=== PATIENT | female | born 1970 | race Caucasian/White ===

== ENCOUNTER 2021-09-07 10:56 | Outpatient (CLI) | payer BC | END 2021-09-07 10:57 | disposition home or self-care (01) | LOC: CSHMAMMO 10:56 | PROVIDERS: ATTEND Student in an Organized Health Care Education/Training Program | DX: Z12.31 Encounter for screening mammogram for malignant neoplasm of breast (principal); Z80.3 Family history of malignant neoplasm of breast; Z91.89 Other specified personal risk factors, not elsewhere classified | CPT/HCPCS: 77063; 77067 ==

== ENCOUNTER 2022-10-20 10:53 | Outpatient (CLI) | payer BC | END 2022-10-20 10:54 | disposition home or self-care (01) | LOC: CSHMAMMO 10:53 | PROVIDERS: ATTEND Student in an Organized Health Care Education/Training Program | DX: Z12.31 Encounter for screening mammogram for malignant neoplasm of breast (principal); N63.10 Unspecified lump in the right breast, unspecified quadrant; N63.20 Unspecified lump in the left breast, unspecified quadrant; Z91.89 Other specified personal risk factors, not elsewhere classified; Z80.3 Family history of malignant neoplasm of breast | CPT/HCPCS: 77063; 77067 ==

== ENCOUNTER 2024-01-19 11:51 | Emergency (ER) | payer BC | END 2024-01-19 13:30 | disposition home or self-care (01) | LOC: CSHERS 11:51 | DX: Z46.6 Encounter for fitting and adjustment of urinary device (principal) | CPT/HCPCS: 99283 ==

== ENCOUNTER 2024-02-14 23:39 | Emergency (ER) | payer BC ==
[2024-02-15] MEDS ORDERED: Ondansetron PF 4 MG/2 ML Vial ONE ×2 (00:01→01:49)
[2024-02-15 00:22] LABS: ALT (SGPT) 7 U/L (8-55); AST (SGOT) 15 U/L (5-34); Alkaline Phosphatase 106 U/L (40-110); Anion Gap 16 mmol/L (10-20); BUN (Urea Nitrogen) 5 mg/dL (9.8-20.1); Bilirubin, Total 0.4 mg/dL (0.2-1.2); Calc. Creatinine Clearance 0 mL/min (70-130); Calcium 9.6 mg/dL (7.8-10.44); Carbon Dioxide 21 mmol/L (22-29); Chloride 103 mmol/L (98-107); Estimated GFR 100; Globulin 3.3 g/dL (2.4-3.5); Glucose 129 mg/dL (70-105); Lipase 9 U/L (8-78); Potassium 3.1 mmol/L (3.5-5.1); Protein, Total 6.3 g/dL (6.0-8.3); Sodium 137 mmol/L (136-145)
[2024-02-15 00:35] LABS: #Basophils 0.02 10x3/uL (0.0-0.2); #Monocytes 0.69 10x3/uL (0.0-1.1); #Neutrophils 8.41 10x3/uL (1.5-8.4); %Basophils 0.2 % (0.0-2.0); %Eosinophils 2.7 % (0.0-6.0); %Lymphocytes 13.8 % (18.0-47.0); %Monocytes 6.3 % (0.0-10.0); %Neutrophils 76.6 % (40.0-75.0); Hematocrit 34.8 % (34.9-44.5); Hemoglobin 11.8 g/dL (12.0-15.5); Mean Corpuscular HGB CONC 33.9 g/dL (32.0-36.0); Mean Corpuscular Hemoglobin 28.7 pg (27.0-33.0); Mean Corpuscular Volume 84.7 fL (81.6-98.3); Mean Platelet Volume 9.9 fL (7.4-10.4); Platelet Count 438 10x3/uL (150-450); RBC Distribution Width 12.4 % (11.5-14.5); Red Blood Cell (RBC) Count 4.11 10x6/uL (3.90-5.03)
[2024-02-15] MEDS ORDERED: Ketorolac Tromethamine 30 MG (1 mL) VIAL ONE (00:36)
[2024-02-15] MEDS ORDERED: Morphine 4 MG/ML VIAL ONE ×3 (00:36→04:51)
[2024-02-15] MEDS ORDERED: Famotidine/PF 20 mg/2ml Vial ONE (00:38)
[2024-02-15 01:13] LABS: BHCG - Serum Negative (NEGATIVE); Pregs Control Background? CLEAR/WHITE (CLR/WHITE); Pregs Control Bar Appear? YES (CONTROL BAR)
[2024-02-15] MEDS ORDERED: Potassium Chloride 20 MEQ TAB ONE (04:00)
[2024-02-15] MEDS ORDERED: Polyethylene Glycol 3350 17 GM Packet PO SCH (05:00)
[2024-02-15] MEDS ORDERED: Iopamidol 300 61% 100 ML VIAL FS ONE (13:29)
== END 2024-02-15 05:18 | disposition home or self-care (01) ==
LOC: CSHERS 23:39
DX: C21.8 Malignant neoplasm of overlapping sites of rectum, anus and anal canal (principal); K59.00 Constipation, unspecified; E87.6 Hypokalemia; R03.0 Elevated blood-pressure reading, without diagnosis of hypertension
CPT/HCPCS: 74177; 80053; 83690; 84703; 85025; 93005; 96361; 96374; 96375; 96376; J1885; J2270; J2405; Q9967; S0028

== ENCOUNTER 2024-02-17 16:50 | Emergency (ER) | payer BC ==
[~2024-02-17 16:50] MED LIST: Iopamidol 300 61% 100 ML VIAL FS ONE
[2024-02-17] MEDS ORDERED: Metoclopramide HCl 10 MG (2 mL) VIAL ONE (17:36)
[2024-02-17] MEDS ORDERED: diphenhydrAMINE 50 MG/ML VIAL ONE (17:36)
[2024-02-17] MEDS ORDERED: HYDROmorphone 0.5 MG/0.5 ML SYRINGE ONE (17:36)
[2024-02-17 17:57] LABS: #Basophils 0.01 10x3/uL (0.0-0.2); #Eosinphils 0.41 10x3/uL (0.0-0.5); #Monocytes 0.54 10x3/uL (0.0-1.1); #Neutrophils 9.18 10x3/uL (1.5-8.4); %Basophils 0.1 % (0.0-2.0); %Eosinophils 3.7 % (0.0-6.0); %Lymphocytes 9.4 % (18.0-47.0); %Monocytes 4.8 % (0.0-10.0); %Neutrophils 81.7 % (40.0-75.0); Hematocrit 35.5 % (34.9-44.5); Mean Corpuscular HGB CONC 33.8 g/dL (32.0-36.0); Mean Corpuscular Hemoglobin 29.1 pg (27.0-33.0); Mean Corpuscular Volume 86.2 fL (81.6-98.3); Platelet Count 413 10x3/uL (150-450); RBC Distribution Width 12.4 % (11.5-14.5); Red Blood Cell (RBC) Count 4.12 10x6/uL (3.90-5.03); White Blood Cell (WBC) Count 11.2 10x3/uL (3.5-10.5)
[2024-02-17 18:06] LABS: ALT (SGPT) 8 U/L (8-55); AST (SGOT) 16 U/L (5-34); Albumin 2.9 g/dL (3.5-5.0); Alkaline Phosphatase 108 U/L (40-110); Anion Gap 17 mmol/L (10-20); BUN (Urea Nitrogen) 5 mg/dL (9.8-20.1); Bilirubin, Total 0.4 mg/dL (0.2-1.2); Calc. Creatinine Clearance 0 mL/min (70-130); Calcium 9.3 mg/dL (7.8-10.44); Carbon Dioxide 23 mmol/L (22-29); Chloride 98 mmol/L (98-107); Estimated GFR 104; Globulin 3.4 g/dL (2.4-3.5); Glucose 93 mg/dL (70-105); Potassium 3.4 mmol/L (3.5-5.1); Protein, Total 6.3 g/dL (6.0-8.3); Sodium 135 mmol/L (136-145)
== END 2024-02-17 19:54 | disposition home or self-care (01) ==
LOC: CSHERS 16:50
DX: R11.2 Nausea with vomiting, unspecified (principal); C18.8 Malignant neoplasm of overlapping sites of colon
CPT/HCPCS: 74177; 80053; 85025; 96361; 96374; 96375; J1170; J1200; J2765; Q9967

== ENCOUNTER 2024-05-03 16:24 | Emergency (ER) | payer BC ==
[2024-05-03 17:39] LABS: Hematocrit 26.7 % (34.9-44.5); Hemoglobin 9.1 g/dL (12.0-15.5); Mean Corpuscular HGB CONC 34.1 g/dL (32.0-36.0); Mean Corpuscular Hemoglobin 28.8 pg (27.0-33.0); Mean Corpuscular Volume 84.5 fL (81.6-98.3); Mean Platelet Volume 10.4 fL (7.4-10.4); Platelet Count 114 10x3/uL (150-450); RBC Distribution Width 17.2 % (11.5-14.5); Red Blood Cell (RBC) Count 3.16 10x6/uL (3.90-5.03)
[2024-05-03 17:40] LABS: MDiff Complete? YES
[2024-05-03 17:46] LABS: ALT (SGPT) 23 U/L (8-55); AST (SGOT) 13 U/L (5-34); Albumin 2.8 g/dL (3.5-5.0); Alkaline Phosphatase 77 U/L (40-110); Anion Gap 13 mmol/L (10-20); BUN (Urea Nitrogen) 13 mg/dL (9.8-20.1); Bilirubin, Total 0.4 mg/dL (0.2-1.2); Calc. Creatinine Clearance 0 mL/min (70-130); Calcium 8.8 mg/dL (7.8-10.44); Carbon Dioxide 29 mmol/L (22-29); Chloride 94 mmol/L (98-107); Estimated GFR 91; Glucose 88 mg/dL (70-105); Potassium 3.5 mmol/L (3.5-5.1); Protein, Total 5.8 g/dL (6.0-8.3); Sodium 132 mmol/L (136-145)
[2024-05-03] MEDS ORDERED: HYDROmorphone 0.5 MG/0.5 ML SYRINGE ONE ×2 (18:22→18:50)
[2024-05-03 18:44] LABS: Lymphocytes 28 % (21-51); Monocytes 10 % (0-10); Reactive Lymphocytes 2 % (0-10)
[2024-05-03 18:45] LABS: Band 44 % (5-11); Neutrophil 16 % (42-75)
[2024-05-03 18:46] LABS: Dohle Bodies SLIGHT; Large Platelets SLIGHT (None Seen); Platelet Adequacy Comment Appears Decreased; Toxic Granulation SLIGHT
[2024-05-03 18:47] LABS: Ovalocytes SLIGHT = 2-5 cells (100X) (0-1/hpf)
[2024-05-03 18:49] LABS: Reflex for Review?? YES
[2024-05-03 20:11] LABS: Bilirubin Neg (Negative); Blood, Urine 250 (Negative); Clarity Cloudy (Clear); Glucose, Urine (Dipstick) Normal (Negative); Ketone, Urine Negative (Negative); Leukocyte 100 (Negative); Nitrite Negative (Negative); Protein, Urine (Dipstick) 100 mg/dl (Neg-Trace); Specific Gravity, Urine 1.005 (1.005-1.030); Urobilinogen Normal mg/dL (Less than 2); pH, Urine 6.5 (5.0-9.0)
[2024-05-03 21:18] LABS: CAUTI Indications for Culture Acute Hematuria; RBC/HPF 21-50 HPF (0-3)
[2024-05-03 21:23] LABS: Bacteria/HPF 2+ HPF (None Seen); Squamous Epithelial 0-3 HPF (0-3); Yeast-Hyphae 1+ HPF (None Seen)
[2024-05-03 21:24] LABS: Mucous/LPF 1+ LPF (<2+); Yeast-Budding Rare HPF (None Seen)
[2024-05-03 21:25] LABS: Urine Culture Reflex Yes Yes; WBC/HPF 21-50 HPF (0-3)
== END 2024-05-03 22:47 | disposition home or self-care (01) ==
LOC: CSHERS 16:24
DX: T83.091A Other mechanical complication of indwelling urethral catheter, initial encounter (principal)
CPT/HCPCS: 36415; 51702; 80053; 81001; 85025; 85060; 87077; 87086; 96374; J1170

== ENCOUNTER 2024-05-30 13:55 | Emergency (ER) | payer BC | END 2024-05-30 14:48 | disposition home or self-care (01) | LOC: CSHERS 13:55 | DX: Z46.6 Encounter for fitting and adjustment of urinary device (principal) | CPT/HCPCS: 99283 ==

== ENCOUNTER 2025-03-14 12:28 | Outpatient (CLI) | payer BC | END 2025-03-14 12:29 | disposition home or self-care (01) | LOC: CSHMAMMO 12:28 | PROVIDERS: ATTEND Family Medicine | DX: Z12.31 Encounter for screening mammogram for malignant neoplasm of breast (principal); Z80.3 Family history of malignant neoplasm of breast; Z91.89 Other specified personal risk factors, not elsewhere classified | CPT/HCPCS: 77063; 77067 ==